=== PATIENT | female | born 1980 | race Caucasian/White ===

== ENCOUNTER 2018-01-14 14:03 | Emergency (ER) | payer MEDICAID, OTHER ==
[2018-01-14 14:16] VITALS: BP 116/86
[2018-01-14] MEDS ORDERED: BUFFERED LIDOCAINE 10 ML SYRINGE ONE (14:39)
--- NOTE | 2018-01-14 14:40 | ED Physician Documentation ---
PD HPI UPPER EXT INJURY - Stated complaint Stated Complaint: R HAND LAC - Chief complaint Chief Complaint: Laceration - History obtained from History obtained from: Patient - History of Present Illness Location: Right, Hand Type of injury: Laceration Where injury occurred: Home Timing - onset: Last night (1929) - Additonal information Additional information: Cut on broken glass at home last night, Tetanus is up-to-date. Review of Systems Constitutional: reports: Reviewed and negative Ears: reports: Reviewed and negative Nose: reports: Reviewed and negative PD PAST MEDICAL HISTORY - Past Surgical History Past Surgical History: No - Present Medications Home Medications: Ambulatory Orders Medication Instructions Recorded Confirmed No Known Home Medications [No 01/14/18 01/14/18 Known Home Medications] - Allergies Allergies/Adverse Reactions: Allergies Allergy/AdvReac Type Severity Reaction Status Date / Time codeine Allergy Unknown Verified 09/19/15 16:36 sulfamethoxazole Allergy Unknown Verified 09/19/15 16:36 [From ] trimethoprim [From ] Allergy Unknown Verified 09/19/15 16:36 - Social History Does the pt smoke?: No Smoking Status: Never smoker Does the pt drink ETOH?: No Does the pt have substance abuse?: No - Immunizations Immunizations are current?: Yes - POLST Patient has POLST: No PD ED PE NORMAL - Vitals Vital signs reviewed: Yes - General General: Alert and oriented X 3, No acute distress - Extremities Extremities: Other (Is a curved flap laceration on the radial side of the dorsum of the hand just proximal to the second MCP, she has normal neurovascular status in that digit and the wound is not deep enough to affect deeper structures anyway.) - Neuro Neuro: Alert and oriented X 3, Normal speech Results - Vitals Vitals: Vital Signs - 24 hr 01/14/18 14:11 Temperature 36.7 C Heart Rate 96 Respiratory 16 Rate Blood Pressure 116/86 H O2 Saturation 99 Oxygen O2 Source Room air Procedures - Laceration (location) R hand Length in cm: 3 Wound type: Curved, Into subcut fat Neurovascular status: Sensory intact, Motor intact, Vascular intact Anesthesia: Lidocaine 1%, With bicarb Wound Preparation: Betadine, Irrigated copiously NS Skin layer closure: Nylon, Interrupted, Size #-0 - enter number (5-0) Other: Patient tolerated well, No complications, Neurovascular intact, Tetanus UTD PD MEDICAL DECISION MAKING - Sepsis Event Vital Signs: Vital Signs - 24 hr 01/14/18 14:11 Temperature 36.7 C Heart Rate 96 Respiratory 16 Rate Blood Pressure 116/86 H O2 Saturation 99 Oxygen O2 Source Room air Departure - Departure Disposition: 01 Home, Self Care Clinical Impression: Laceration Condition: Good Record reviewed to determine appropriate education?: Yes Instructions: ED Laceration Hand Comments: Come back for any signs of infection which would include: Redness, swelling, drainage, increased pain, or fevers. Follow-up with your physician in About 14 days for suture removal. Your blood pressure was elevated today on check into the emergency department. This does not mean that you have hypertension, it is a common phenomenon to come to the emergency department and have elevated blood pressure. I recommend that you see your primary care physician within the week to have it rechecked when you are feeling better.
== END 2018-01-14 14:50 | disposition home or self-care (01) ==
LOC: ED 14:03
DX: S61.411A Laceration without foreign body of right hand, initial encounter (principal); W25.XXXA Contact with sharp glass, initial encounter; Y93.G1 Activity, food preparation and clean up; Y92.000 Kitchen of unspecified non-institutional (private) residence as the place of occurrence of the external cause
CPT/HCPCS: 12002; 99282; 99283

== ENCOUNTER 2018-07-05 03:23 | Emergency (ER) | payer MEDICAID ==
[2018-07-05] MEDS ORDERED: PROPARACAINE 0.5% OPHTH DROPS 15 ML LEFTEYE STA (03:40)
[2018-07-05] MEDS ORDERED: NEOMYCIN/POLYMYX/DEXAMETH OPHTH DROPS 5 ML LEFTEYE STA (04:08)
[2018-07-05] MEDS ORDERED: LIDOCAINE 1% 2 ML VIAL SUBQ ONE (04:08)
[2018-07-05] MEDS ORDERED: cefTRIAXone 1 GM VIAL IM STA (04:08)
--- NOTE | 2018-07-05 04:11 | ED Physician Documentation ---
PD HPI URI - Stated complaint Stated Complaint: L EYE PX - Chief complaint Chief Complaint: Heent - History obtained from History obtained from: Patient - History of Present Illness Timing - onset: How many weeks ago (1) Timing duration: Weeks (1) Timing details: Gradual onset, Still present Associated symptoms: Nasal congestion, Rhinorrhea, Sinus pain, Sore throat, Dry cough, Other (eye crusting and swelling) Contributing factors: Sick contact Improves by: Rest, Medication Similar symptoms before: Has not had sx before Recently seen: Not recently seen - Additional information Additional information: 38-year-old female has had a cold for the past week and she has now developed swelling and drainage from the left eye. She has a feeling of aching to the eye. She denies any foreign body sensation she does state that she can see that there is a lot of redness to the medial aspect of the eye and drainage out of the lateral aspect of some matting discharge. She has had a cough and congestion and a sore throat especially on the left. She has not had any change in vision. Review of Systems Constitutional: reports: Myalgias, Fatigue. denies: Fever Eyes: reports: Discharge, Irritation. 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 : None HEENT: None Psych: Depression Musculoskeletal: None Derm: Eczema Other Past Medical History: IBS - Past Surgical History Past Surgical History: No - Present Medications Home Medications: Ambulatory Orders Medication Instructions Recorded Confirmed Amox/Clav 875/125 [Augmentin] 1 each PO Q12H #20 tablet 07/05/18 - Allergies Allergies/Adverse Reactions: Allergies Allergy/AdvReac Type Severity Reaction Status Date / Time codeine Allergy Unknown Verified 07/05/18 03:34 sulfamethoxazole Allergy Unknown Verified 07/05/18 03:34 [From ] trimethoprim [From ] Allergy Unknown Verified 07/05/18 03:34 - Social History Does the pt smoke?: No Smoking Status: Never smoker Does the pt drink ETOH?: Yes Does the pt have substance abuse?: No - Immunizations Immunizations are current?: Yes - POLST Patient has POLST: No PD ED PE NORMAL - Vitals Vital signs reviewed: Yes (hypertensive ) - General General: Alert and oriented X 3, No acute distress, Well developed/nourished - HEENT HEENT: Atraumatic, PERRL, EOMI, Other (The right TM is clear the left is mildly erythematous. The left eye has matting to the lateral aspect with yellow drainag. There is injection to the sclera on the left medially and the upper and lower lids are swollen and erythematous. There is no fluroscien uptake. She looks like she has tuan-orbital cellulitis with drainage from the lateral aspect of the eye. The pharynx is with 1+ cryptic tonsils worse on the left with mild erythema and no exudate. ) - Neck Neck: Supple, no meningeal sign, No bony TTP - Cardiac Cardiac: RRR, No murmur - Respiratory Respiratory: No respiratory distress, Clear bilaterally - Abdomen Abdomen: Soft, Non tender - Back Back: No CVA TTP, No spinal TTP - Derm Derm: Normal color, Warm and dry, No rash - Extremities Extremities: No deformity, No edema - Neuro Neuro: Alert and oriented X 3, light adjuster 2-12 intact, No motor deficit, No sensory deficit, Normal speech Eye Opening: Spontaneous Motor: Obeys Commands Verbal: Oriented GCS Score: 15 - Psych Psych: Normal mood, Normal affect Results - Vitals Vitals: Vital Signs - 24 hr 07/05/18 03:29 Temperature 36.7 C Heart Rate 89 Respiratory 16 Rate Blood Pressure 133/89 H O2 Saturation 97 Oxygen O2 Source Room air PD MEDICAL DECISION MAKING - ED course Complexity details: considered differential, d/w patient ED course: 38 y/o female with URI has developed drainage from the left eye and appears to have a conjunctival injection and periorbital cellulitis. She is given IM rocep hin and we will put her on some augmetin. She is administered maxitrol eye drops as well. Departure - Departure Disposition: 01 Home, Self Care Clinical Impression: Periorbital cellulitis of left eye Conjunctivitis Qualifiers: Conjunctivitis type: acute Acute conjunctivitis type: bacterial Laterality: left Qualified Code(s): H10.32 - Unspecified acute conjunctivitis, left eye Condition: Stable Instructions: ED Conjunctivitis Bacterial, ED Cellulitis Tuan Orbital Follow-Up: [facility] [Provider Group] Prescriptions: Amox/Clav 875/125 [Augmentin] 1 each PO Q12H #20 tablet
[2018-07-05 04:44] VITALS: BP 117/79
== END 2018-07-05 04:45 | disposition home or self-care (01) ==
LOC: ED 03:23
DX: H10.32 Unspecified acute conjunctivitis, left eye (principal); J06.9 Acute upper respiratory infection, unspecified
CPT/HCPCS: 96372; 99283

== ENCOUNTER 2018-10-24 22:39 | Emergency (ER) | payer MEDICAID ==
--- NOTE | 2018-10-24 23:16 | ED Physician Documentation ---
PD HPI BACK PAIN - Stated complaint Stated Complaint: L BACK PX - Chief complaint Chief Complaint: Back Pain - History obtained from History obtained from: Patient - History of Present Illness Timing - onset: Yesterday Timing - details: Gradual onset, Waxing and waning Pain level now: 5 Location: Mid, Lower, Left Quality: Pain Associated symptoms: No: Fever, Weakness, Numbness, Incontinent of urine, Unable to urinate, Hematuria, Incontinent of stool Improves with: Rest Worsened by: Movement, Twisting Similar symptoms before: Has not had sx before Recently seen: Not recently seen - Additional information Additional information: c/o gradual onset, gradually worsening left lower back pain that radiates around left flank to LLQ. denies injury and denies h/o similar symptoms. pain is worse with movement Review of Systems Constitutional: denies: Fever, Chills, Sweats Cardiac: reports: Reviewed and negative Respiratory: reports: Reviewed and negative GI: denies: Abdominal Pain (back pain that radiates around flank to LLQ, but not abdominal pain per se), Nausea, Vomiting : denies: Dysuria, Frequency, Hematuria, Now EGA Skin: denies: Rash Musculoskeletal: reports: Back pain. 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 : None HEENT: None Psych: Depression Musculoskeletal: None Derm: Eczema - Past Surgical History Past Surgical History: No - Present Medications Home Medications: Ambulatory Orders Medication Instructions Recorded Confirmed Amox/Clav 875/125 [Augmentin] 1 each PO Q12H #20 tablet 07/05/18 Cyclobenzaprine [Flexeril] 10 mg PO TID PRN #14 tablet 10/25/18 Hydrocodone/Acetaminophen 1 - 2 each PO Q6H PRN #14 tablet 10/25/18 [Hydrocodon-Acetaminophen 5-325] - Allergies Allergies/Adverse Reactions: Allergies Allergy/AdvReac Type Severity Reaction Status Date / Time codeine Allergy Unknown Verified 07/05/18 03:34 sulfamethoxazole Allergy Unknown Verified 07/05/18 03:34 [From ] trimethoprim [From ] Allergy Unknown Verified 07/05/18 03:34 - Social History Does the pt smoke?: No Smoking Status: Never smoker Does the pt drink ETOH?: Yes Does the pt have substance abuse?: No - Immunizations Immunizations are current?: Yes - POLST Patient has POLST: No PD ED PE NORMAL - Vitals Vital signs reviewed: Yes - General General: Alert and oriented X 3, No acute distress, Well developed/nourished - Cardiac Cardiac: RRR, No murmur - Respiratory Respiratory: No respiratory distress, Clear bilaterally - Abdomen Abdomen: Normal bowel sounds, Soft, Non tender, Non distended - Back Back: No CVA TTP, No spinal TTP - Derm Derm: No rash - Extremities Extremities: No edema Results - Vitals Vitals: Vital Signs - 24 hr 10/24/18 10/25/18 22:42 00:41 Temperature 36.6 C 36.7 C Heart Rate 98 90 Respiratory 16 18 Rate Blood Pressure 142/73 H 127/75 O2 Saturation 100 100 Oxygen O2 Source Room air - Labs Labs: Laboratory Tests 10/24/18 23:27 Urine Color YELLOW Urine Clarity CLEAR Urine pH 6.0 Ur Specific [place] >=1.030 H Urine Protein NEGATIVE Urine Glucose (UA) NEGATIVE Urine Ketones NEGATIVE Urine Occult Blood LARGE H Urine Nitrite NEGATIVE Urine Bilirubin NEGATIVE Urine Urobilinogen 0.2 (NORMAL) Ur Leukocyte Esterase NEGATIVE Urine RBC 0-5 Urine WBC 0-3 Ur Squamous Epith Cells FEW Squamous Urine Bacteria Rare Ur Microscopic Review INDICATED Urine Culture Comments NOT INDICATED Urine HCG, Qual NEGATIVE PD MEDICAL DECISION MAKING - ED course Complexity details: reviewed results, re-evaluated patient, considered differential, d/w patient ED course: UA has RBC but patient is currently menstruating. HPI and exam is most suggestive of uncomplicated musculoskeletal back pain. Patient reported improvement with toradol and is comfortable with d/c home, return if worse, and f/u with PMD Departure - Departure Disposition: Home, Self Care Clinical Impression: Back pain Condition: Good Instructions: ED Neck Back Pain General Follow-Up: Grace Hannon PA-C [Primary Care Provider] - Within 3 Days Prescriptions: Cyclobenzaprine [Flexeril] 10 mg PO TID PRN #14 tablet PRN Reason: Spasms Hydrocodone/Acetaminophen [Hydrocodon-Acetaminophen 5-325] 1 - 2 each PO Q6H PRN #14 tablet PRN Reason: pain Discharge Date/Time: 10/25/18 00:42
[2018-10-24] MEDS ORDERED: KETOROLAC 60 MG/2 ML VIAL IM STA (23:29)
[2018-10-24 23:33] LABS: BILIRUBIN,URINE NEGATIVE (NEGATIVE); GLUCOSE, URINE (UA) NEGATIVE (NEGATIVE); KETONES,URINE (UA) NEGATIVE (NEGATIVE); LEUKOCYTE ESTERASE, URINE NEGATIVE (NEGATIVE); NITRITE,URINE NEGATIVE (NEGATIVE); OCCULT BLOOD,URINE LARGE (NEGATIVE); PROTEIN,URINE NEGATIVE (NEGATIVE); UROBILINOGEN,URINE 0.2 (NORMAL) E.U./dL (NORMAL)
[2018-10-24 23:34] LABS: CLARITY,URINE CLEAR (CLEAR)
[2018-10-24 23:35] LABS: HCG UR QUAL NEGATIVE
[2018-10-24 23:39] LABS: BACTERIA,URINE Rare /HPF (None Seen); RBC,URINE 0-5 /HPF (0-5); SQUAMOUS EPITHELIAL CELL,UR FEW Squamous (<= Few)
[2018-10-25 00:42] VITALS: BP 127/75
== END 2018-10-25 00:42 | disposition home or self-care (01) ==
LOC: ED 22:39
DX: M54.5 Low back pain (principal)
CPT/HCPCS: 81001; 81003; 81025; 87086; 96372; 99283

== ENCOUNTER 2018-12-15 11:41 | Emergency (ER) | payer MEDICAID ==
[2018-12-15 11:50] VITALS: BP 118/59
--- NOTE | 2018-12-15 12:29 | ED Physician Documentation ---
PD HPI LOWER EXT INJURY - Stated complaint Stated Complaint: KNEE PX - Chief complaint Chief Complaint: Ext Problem - History obtained from History obtained from: Patient - History of Present Illness PD HPI LOW EXT INJURY LOCATION: Right, Knee Type of injury: Other (No known injury, however the patient thinks she may have hit her knee getting into the car the other day and she is been climbing up and down a ladder building a chicken coop.) Timing - onset: Today Timing - details: Abrupt onset Improved by: Meds Worsened by: Moving Associated symptoms: Swelling Similar symptoms before: Has not had sx before - Additional information Additional information: This is a 38-year-old who started have a little bit of pain in her knee last night on the right side this morning she woke up and it was very stiff and she had a hard time putting it down walking on it. She took ibuprofen 400 mg about 2 hours ago and it seems to be doing much better although still a little bit painful. She can feel creaking over the knee when she moves it. She is very active at home she has a 2 and a 3-year-old she is been building a chicken coop climbing up and down a ladder but does not remember any specific injury to the knee. She thinks she might have twisted it in the past. There is no numbness or tingling down into her foot but a little bit of numbness she felt earlier today along the medial aspect of the knee joint. That has now resolved. She has not had a fever. No nausea. No history of diabetes. 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 - Present Medications Home Medications: Ambulatory Orders Medication Instructions Recorded Confirmed No Known Home Medications 12/15/18 12/15/18 - Allergies Allergies/Adverse Reactions: Allergies Allergy/AdvReac Type Severity Reaction Status Date / Time codeine Allergy Unknown Verified 12/15/18 11:50 sulfamethoxazole Allergy Unknown Verified 12/15/18 11:50 [From ] trimethoprim [From ] Allergy Unknown Verified 12/15/18 11:50 - Social History Does the pt smoke?: No Smoking Status: Current some day smoker Does the pt drink ETOH?: Yes Does the pt have substance abuse?: No - Immunizations Immunizations are current?: Yes - POLST Patient has POLST: No PD ED PE NORMAL - Vitals Vital signs reviewed: Yes - General General: Alert and oriented X 3, No acute distress, Well developed/nourished - HEENT HEENT: Atraumatic - Cardiac Cardiac: RRR - Respiratory Respiratory: No respiratory distress - Derm Derm: Normal color, Other (Erythema over the right patella. Very sharply demarcated. No warmth.) - Extremities Extremities: Other (Free range of motion about the right knee. I could feel crepitus with movement of the knee. It is mildly tender.No pedal edema.) - Neuro Neuro: Alert and oriented X 3, No motor deficit, No sensory deficit - Psych Psych: Normal mood, Normal affect Results - Vitals Vitals: Vital Signs - 24 hr 12/15/18 11:48 Temperature 36.6 C Heart Rate 77 Respiratory 16 Rate Blood Pressure 118/59 L O2 Saturation 100 Oxygen O2 Source Room air PD MEDICAL DECISION MAKING - ED course Complexity details: d/w patient ED course: Patient has classic presentation of prepatellar bursitis. No indication of infection. She will continue anti-inflammatories, ice of comfort. Return if the swelling is worsening, she develops a fever or she is vomiting and cannot keep anything down. Departure - Departure Disposition: 01 Home, Self Care Clinical Impression: Bursitis Qualifiers: Bursitis location: knee Knee bursitis location: prepatellar bursitis Laterality: right Qualified Code(s): M70.41 - Prepatellar bursitis, right knee Condition: Good Instructions: ED Bursitis Follow-Up: Grace Hannon PA-C [Primary Care Provider] - Comments: Continue to use ibuprofen [id number] for pain. I would take up to 4 tablets every 8 hours with food for the next 2 to 3 days and then as needed. Ice may help with some discomfort. Avoid leaning on the knee, bending, stooping, climbing a lot of steps or ladders. Follow-up with your primary care provider if this is not resolving and return if there is worsening with spreading redness, increasing severe pain, fever or other problems arise.
== END 2018-12-15 12:37 | disposition home or self-care (01) ==
LOC: ED 11:41
DX: M70.41 Prepatellar bursitis, right knee (principal); F17.200 Nicotine dependence, unspecified, uncomplicated; Y93.H3 Activity, building and construction; Y92.89 Other specified places as the place of occurrence of the external cause
CPT/HCPCS: 99282

== ENCOUNTER 2019-06-04 23:04 | Emergency (ER) | payer MEDICAID ==
[2019-06-04 23:12] VITALS: BP 125/78
--- NOTE | 2019-06-04 23:17 | ED Physician Documentation ---
PD HPI URI - Stated complaint Stated Complaint: SORE THROAT/RUNNY NOSE - Chief complaint Chief Complaint: Heent - History obtained from History obtained from: Patient - History of Present Illness Timing - onset: How many weeks ago (1) Timing duration: Weeks (1) Timing details: Gradual onset Severity Comments: moderate nasal congestion, sore throat Associated symptoms: Nasal congestion, Rhinorrhea, Sore throat. No: Fever, Chills, Sweats, Ear pain, Sinus pain, Swollen nodes, Dry cough, Productive cou gh, Hemoptysis, Chest pain, Dyspnea, NVD, Bilateral edema, Unilateral edema Contributing factors: Other (unknown) Improves by: Nothing Worsened by: Other (nothing) Similar symptoms before: Diagnosis (hx of flu recently, mono in the past, sinusitis) Recently seen: Not recently seen - Treatment prior to arrival Treatment prior to arrival: anna anthony cold medicine Review of Systems Ten Systems: 10 systems reviewed and negative Constitutional: denies: Fever Eyes: reports: Reviewed and negative Ears: denies: Ear pain, Drainage/discharge Nose: reports: Rhinorrhea / runny nose, Congestion Throat: reports: Sore throat Cardiac: reports: Reviewed and negative Respiratory: reports: Reviewed and negative GI: reports: Reviewed and negative : reports: Reviewed and negative Skin: reports: Reviewed and negative Neurologic: reports: Headache Endocrine: reports: Reviewed and negative Immunocompromised: reports: Reviewed and negative PD PAST MEDICAL HISTORY - Past Medical History Past Medical History: Yes Cardiovascular: None Respiratory: Asthma Neuro: None Endocrine/Autoimmune: None GI: 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 06/04/19 - Allergies Allergies/Adverse Reactions: Allergies Allergy/AdvReac Type Severity Reaction Status Date / Time codeine Allergy Unknown Verified 06/04/19 23:07 sulfamethoxazole Allergy Unknown Verified 06/04/19 23:07 [From ] trimethoprim [From ] Allergy Unknown Verified 06/04/19 23:07 - Social History Does the pt smoke?: No Smoking Status: Current some day smoker Does the pt drink ETOH?: Yes Does the pt have substance abuse?: No - Immunizations Immunizations are current?: Yes - POLST Patient has POLST: No PD ED PE NORMAL - Vitals Vital signs reviewed: Yes - General General: Alert and oriented X 3, No acute distress, Well developed/nourished - HEENT HEENT: Atraumatic, Pharynx benign - Neck Neck: Supple, no meningeal sign, No JVD - Cardiac Cardiac: RRR, No murmur, No gallop, No rub - Respiratory Respiratory: No respiratory distress, Clear bilaterally - Abdomen Abdomen: Soft, Non tender, Non distended - Female Female : Deferred - Rectal Rectal: Deferred - Derm Derm: Normal color, Warm and dry, No rash - Extremities Extremities: No deformity - Neuro Neuro: Alert and oriented X 3 Eye Opening: Spontaneous Motor: Obeys Commands Verbal: Oriented GCS Score: 15 - Psych Psych: Normal mood, Normal affect PD ED PE EXPANDED - HEENT HEENT: Other (L nostril redness, sore inner nostril with some yello crusting, mild tenderness, no fluctuance ) Results - Vitals Vitals: Vital Signs - 24 hr 06/04/19 23:07 Temperature 37.3 C Heart Rate 100 Respiratory 16 Rate Blood Pressure 125/78 O2 Saturation 98 Oxygen O2 Source Room air - Labs Labs: Laboratory Tests 06/04/19 06/04/19 23:20 23:20 Influenza A (Rapid) Negative Influenza B (Rapid) Negative Group A Strep Rapid POSITIVE H PD MEDICAL DECISION MAKING - ED course Complexity details: reviewed results, considered differential, d/w patient ED course: 38 y/o F with URI symptoms, sore throat, sinus congestion No fever. Also has a L nostril sore and redness concerning for impetigo. Rapid strep positive here today. Will treat with augmentin and mupirocin for impetigo. Pt stable for discharge with continued supportive care as well, nsaids, afrin nasal spray and outpt f/u Departure - Departure Disposition: 01 Home, Self Care Clinical Impression: Strep pharyngitis Sinusitis Qualifiers: Sinusitis location: unspecified location Chronicity: acute Recurrence: recurrent Qualified Code(s): J01.91 - Acute recurrent sinusitis, unspecified Condition: Stable Record reviewed to determine appropriate education?: Yes Instructions: ED Strep Pharyngitis Conf Follow-Up: Grace Hannon PA-C [Primary Care Provider] - As Needed Prescriptions: Amox/Clav 875/125 [Augmentin] 1 each PO Q12H #20 tablet Mupirocin 1 applic TP TID #22 oint...g. Comments: Your swab today was positive for strep throat. You should take the antibiotic - augmentin as prescribed. Continue to take ibuprofen or tylenol for pain. Use afrin nasal spray twice a day for 3 days for your nasal congestion. For your left nose swelling and redness I suspect this is impetigo. Use the mupirocin antibiotic ointment three times a day on the area. Follow up with your regular doctor to recheck your symptoms. Discharge Date/Time: 06/04/19 23:48
[2019-06-04] MEDS ORDERED: AMOX/CLAV 875 MG/125 MG TABLET PO STA (23:37)
[2019-06-04] MEDS ORDERED: OXYMETAZOLINE HCL 100 SPRAYS BOTTLE NAS STA (23:37)
[2019-06-04] MEDS ORDERED: BACITRACIN ZINC OINT 1 PACKET TOP STA (23:37)
[2019-06-04] MEDS ORDERED: IBUPROFEN 600 MG TABLET PO STA (23:37)
== END 2019-06-04 23:48 | disposition home or self-care (01) ==
LOC: ED 23:04
DX: J02.0 Streptococcal pharyngitis (principal); J01.91 Acute recurrent sinusitis, unspecified; L01.00 Impetigo, unspecified; F17.200 Nicotine dependence, unspecified, uncomplicated
CPT/HCPCS: 87275; 87276; 87430; 99283; 99284; A9270

== ENCOUNTER 2021-06-18 18:33 | Emergency (ER) | payer MEDICAID ==
[2021-06-18 18:39] VITALS: BP 128/72
--- NOTE | 2021-06-18 19:05 | ED Physician Documentation ---
History of Present Illness - Stated complaint Stated Complaint: FEMALE - Chief complaint Chief Complaint: General - Additonal information Additional information: 40-year-old female presents emergency department for concern that her IUD may not be in proper place. She has had it in place since she had a in 2017. She has never been able to feel the strings. Over the last 2 days she feels pain and pressure in her pelvic region especially when she has a bowel movement. She states that the last few times she has had sex that has been painful. Denies vaginal bleeding or discharge. some mild dysuria, but no frequency or urgency Review of Systems Constitutional: denies: Fever, Chills Eyes: reports: Reviewed and negative Ears: reports: Reviewed and negative Cardiac: reports: Reviewed and negative Respiratory: reports: Reviewed and negative GI: reports: Reviewed and negative : reports: Dysuria, Other. 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 06/04/19 Cefpodoxime Proxetil [Vantin] 100 mg PO Q12H #14 tablet 06/18/21 - Allergies Allergies/Adverse Reactions: Allergies Allergy/AdvReac Type Severity Reaction Status Date / Time codeine Allergy Unknown Verified 06/18/21 18:39 sulfamethoxazole Allergy Unknown Verified 06/18/21 18:39 [From ] trimethoprim [From ] Allergy Unknown Verified 06/18/21 18:39 - Social History Does the pt smoke?: No Smoking Status: Current some day smoker Does the pt drink ETOH?: Yes Does the pt have substance abuse?: No - Immunizations Immunizations are current?: Yes - POLST Patient has POLST: No PD ED PE EXPANDED - General General: Alert, No acute distress, Well developed/nourished - Cardiac Cardiac: Regular Rate, Radial strong equal, Pedal strong equal, Cap refill < 2 sec - Respiratory Respiratory: Clear to ausultation zina. No: Distress, Labored - Female Female : Normal external, Other (Chaperoned pelvic exam reveals no IUD strings present. No CMT or adnexal tenderness.). No: CMT, Adnexal Mass, Adnexal Tenderness Results - Vitals Vitals: Vital Signs - 24 hr 06/18/21 18:36 Temperature 36.1 C L Heart Rate 95 Respiratory 16 Rate Blood Pressure 128/72 O2 Saturation 100 Oxygen O2 Source Room air - Labs Labs: Microbiology 06/18/21 19:16 Wet Prep - Final Genital - Vaginal Laboratory Tests 06/18/21 19:06 Urine Color YELLOW Urine Clarity CLEAR Urine pH 6.5 Ur Specific [place] >=1.030 H Urine Protein NEGATIVE Urine Glucose (UA) NEGATIVE Urine Ketones NEGATIVE Urine Occult Blood NEGATIVE Urine Nitrite POSITIVE H Urine Bilirubin NEGATIVE Urine Urobilinogen 1 (NORMAL) Ur Leukocyte Esterase NEGATIVE Urine RBC 0-5 Urine WBC 0-3 Ur Squamous Epith Cells RARE Squamous Urine Bacteria Few Urine Mucus Moderate Strands Ur Microscopic Review INDICATED Urine Culture Comments INDICATED Urine HCG, Qual NEGATIVE - Rads (name of study) pelvic US Radiology: Final report received (IUD is in place. No other adventitious findings) PD MEDICAL DECISION MAKING - ED course Complexity details: reviewed results, re-evaluated patient, considered differential, d/w patient ED course: 40-year-old female presents emergency department for evaluation of mild dysuria as well as pain in her pelvic region when she defecates. She has an IUD in place but has never been able to feel the strings. On pelvic exam no strings were seen exiting the uterus. An ultrasound however did confirm that the IUD is appropriately in place. Urine suggests early infection nitrite positive with dysuria. Prescription for Cefpodoxime has been sent to the [facility] in [place]. At this time I suspected that a minor cystitis is the major cause of her pelvic pain especially with defecation. Patient was advised to have close follow-up with her OB for further discussion and management of her IUD. Given that it has been in place for nearly 5 years and she cannot feel the strings it likely needs to be replaced. Emergent worrisome return precautions were discussed for concerns of infection or failure symptoms to resolve. Departure - Departure Disposition: 01 Home, Self Care Clinical Impression: Pelvic pain, IUD check up Acute cystitis Qualifiers: Hematuria presence: without hematuria Qualified Code(s): N30.00 - Acute cystitis without hematuria Condition: Stable Record reviewed to determine appropriate education?: Yes Prescriptions: Cefpodoxime Proxetil [Vantin] 100 mg PO Q12H #14 tablet Comments: You are seen in the ER today because you have had pain when you defecate and are concerned about the placement of your IUD. Your urine suggests an early urinary tract infection. Though we could not see the IUD strings on her pelvic exam and I ultrasound does confirm that the IUD is in place. It is important that you schedule follow-up with an op OB provider. Your IUD may need to be replaced given that it is now nearly 5 years old and the strings are not accessible. Please fill the prescription for the Cefpodoxime and begin taking twice daily. This prescription has been sent to the [facility] in [place]. I suspected that the urinary tract infection is causing more of the pelvic pain than the IUD.
[2021-06-18 19:14] LABS: BILIRUBIN,URINE NEGATIVE (NEGATIVE); GLUCOSE, URINE (UA) NEGATIVE (NEGATIVE); KETONES,URINE (UA) NEGATIVE (NEGATIVE); LEUKOCYTE ESTERASE, URINE NEGATIVE (NEGATIVE); NITRITE,URINE POSITIVE (NEGATIVE); OCCULT BLOOD,URINE NEGATIVE (NEGATIVE); PH,URINE 6.5 PH (5.0-7.5); PROTEIN,URINE NEGATIVE (NEGATIVE); UROBILINOGEN,URINE 1 (NORMAL) E.U./dL (NORMAL)
[2021-06-18 19:18] LABS: CLARITY,URINE CLEAR (CLEAR); HCG UR QUAL NEGATIVE
[2021-06-18 19:23] LABS: BACTERIA,URINE Few /HPF (None Seen); MUCUS,URINE Moderate Strands; RBC,URINE 0-5 /HPF (0-5); SQUAMOUS EPITHELIAL CELL,UR RARE Squamous (<= Few); WBC,URINE 0-3 /HPF (0-5)
--- NOTE | 2021-06-18 22:08 | Ultrasound Report ---
PROCEDURE: Pelvic w/Transvag+Doppler Comp INDICATIONS: pelvic pain, R TECHNIQUE: Real-time scanning was performed of the pelvic organs, with image documentation. Additional endovagi nal scanning was necessary due to incomplete visualization of the adnexal and endometrial structures by transabdominal scanning. COMPARISON: None. FINDINGS: No pathologic free abdominal or pelvic fluid. Uterus: Uterus is normal in size at 6.6 x 3.4 x 4.7 cm. Uterine volume is 56.3 mL. The endometrium m easures 2.9 mm in combined thickness. An IUD is in satisfactory position. Ovaries: Right ovary measures 2.2 x 1.7 x 2.4 cm with a volume of 4.7 mL. Left ovary measures 2.9 x 2.3 x 2.7 cm with a volume of 9.2 mL. Intraovarian flow bilaterally by duplex. IMPRESSION: IUD in satisfactory position. Otherwise unremarkable pelvic ultrasound with no evidence of ovarian to rsion. Reviewed by: Lj Ramos MD on 06/18/2021 10:07 PM PST Approved by: Lj Ramos MD on 06/18/2021 10:07 PM PST Station ID: [id number]
[2021-06-19 00:22] LABS: CHLAMYDIA TRACHOMATIS DNA NEGATIVE (NEGATIVE); NEISSERIA GONORRHOEAE DNA NEGATIVE (NEGATIVE); TRICHOMONAS VAGINALIS DNA NEGATIVE (NEGATIVE)
== END 2021-06-18 21:20 | disposition home or self-care (01) ==
LOC: ED 18:33
DX: R10.2 Pelvic and perineal pain (principal); Z30.431 Encounter for routine checking of intrauterine contraceptive device; F17.200 Nicotine dependence, unspecified, uncomplicated
CPT/HCPCS: 81001; 81003; 81025; 87086; 87181; 87210; 87491; 87591; 87661; 93975; 99283; 99284

== ENCOUNTER 2021-06-20 03:54 | Outpatient (CLI) | payer MEDICAID | END 2021-06-20 03:55 | disposition critical access hospital (66) | LOC: EMS 03:54 | DX: R41.82 Altered mental status, unspecified (principal) | CPT/HCPCS: A0425; A0429 ==

== ENCOUNTER 2021-06-20 04:15 | Emergency (ER) | payer MEDICAID ==
[2021-06-20] MEDS ORDERED: MIDAZOLAM 10 MG/5 ML UDC PO STA (04:23)
--- NOTE | 2021-06-20 04:37 | ED Physician Documentation ---
History of Present Illness - Stated complaint Stated Complaint: INGESTION OF MUSHROOMS - Chief complaint Chief Complaint: General - History obtained from History obtained from: Patient, EMS - Additonal information Additional information: 41-year-old woman presents with ingestion of psychogenic mushrooms. Mother called EMS because she was "having a bad trip". Patient stating that she is having trouble grasping reality right now and wants the vision changes to stop. no other complaints. vitals in the field normal other than mild tachycardia. 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 06/04/19 Cefpodoxime Proxetil [Vantin] 100 mg PO Q12H #14 tablet 06/18/21 - Allergies Allergies/Adverse Reactions: Allergies Allergy/AdvReac Type Severity Reaction Status Date / Time codeine Allergy Unknown Verified 06/18/21 18:39 sulfamethoxazole Allergy Unknown Verified 06/18/21 18:39 [From ] trimethoprim [From ] Allergy Unknown Verified 06/18/21 18:39 - Social History Does the pt smoke?: No Smoking Status: Current some day smoker Does the pt drink ETOH?: Yes Does the pt have substance abuse?: No - Immunizations Immunizations are current?: Yes - POLST Patient has POLST: No PD ED PE NORMAL - Vitals Vital signs reviewed: Yes - General General: No acute distress, Well developed/nourished, Other (Alert, disoriented, staring straight ahead) - HEENT HEENT: Atraumatic, PERRL, EOMI, Moist mucous membranes, Other (pupils 4mm bilaterally) - Neck Neck: Supple, no meningeal sign - Cardiac Cardiac: RRR - Respiratory Respiratory: No respiratory distress, Clear bilaterally - Abdomen Abdomen: Non tender, Non distended - Derm Derm: Normal color, Warm and dry - Extremities Extremities: No deformity - Neuro Neuro: No motor deficit, No sensory deficit - Psych Psych: Other (clinically intoxicated. endorses visual disturbance/hallucination) Results - Vitals Vitals: Vital Signs - 24 hr 06/20/21 04:19 Temperature 36.6 C Heart Rate 106 H Respiratory 26 H Rate Blood Pressure 146/87 H O2 Saturation 99 Oxygen O2 Source Room air PD MEDICAL DECISION MAKING - ED course ED course: 41-year-old woman presents status post injection of Magic mushrooms with acute intoxication. Vital signs are normal with the exception of mild hypertension and tachycardia. Patient appears mildly anxious but in no acute distress. We will keep on the teletypesetter monitor and continue to monitor. Patient AOX3 after an hour of monitoring and 2mg oral versed, apologetic, asking to go home. She has a ride coming to get her. No complaints at this time. return precautions given. Departure - Departure Disposition: 01 Home, Self Care Clinical Impression: Intoxication by drug Condition: Good Comments: You were seen in the emergency department for evaluation after ingesting mushrooms. We gave you 2 mg of liquid Versed, an antianxiety medication that can help counteract the negative effects of psilocybin. Please return to the emergency department if you have other concerns. Follow up with your primary doctor. Glad you're feeling better!
[2021-06-20 05:19] VITALS: BP 142/82
== END 2021-06-20 05:41 | disposition home or self-care (01) ==
LOC: EDUNIT# → ED 04:15
DX: F16.929 Hallucinogen use, unspecified with intoxication, unspecified (principal); R44.1 Visual hallucinations; R41.0 Disorientation, unspecified; R00.0 Tachycardia, unspecified; I10 Essential (primary) hypertension
CPT/HCPCS: 99281; 99284; A9270

== ENCOUNTER 2021-12-04 12:26 | Emergency (ER) | payer MEDICAID ==
[2021-12-04 12:39] VITALS: BP 148/80
--- NOTE | 2021-12-04 12:48 | ED Physician Documentation ---
PD HPI HEENT - Stated complaint Stated Complaint: MOUTH AND THROAT SWOLLEN - Chief complaint Chief Complaint: Heent - History obtained from History obtained from: Patient - Additional information Additional information: 5 days of worsening tooth pain from a right mandibular molar. It is getting hard to chew and she feels the pain radiating away. She last saw her dentist 6 months ago who noted that that tooth needed to be removed, but she did not return because she has children. 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 - Present Medications Home Medications: Ambulatory Orders Medication Instructions Recorded Confirmed Penicillin V Potassium 500 mg PO Q6HR #40 tablet 12/04/21 - Allergies Allergies/Adverse Reactions: Allergies Allergy/AdvReac Type Severity Reaction Status Date / Time codeine Allergy Unknown Verified 12/04/21 12:34 sulfamethoxazole Allergy Unknown Verified 12/04/21 12:34 [From ] trimethoprim [From ] Allergy Unknown Verified 12/04/21 12:34 - Social History Does the pt smoke?: No Smoking Status: Never smoker Does the pt drink ETOH?: Yes Does the pt have substance abuse?: No - Immunizations Immunizations are current?: Yes - POLST Patient has POLST: No PD ED PE NORMAL - Vitals Vital signs reviewed: Yes - General General: Alert and oriented X 3, No acute distress - HEENT HEENT: Other (Very carious remaining right mandibular molar with tenderness. No trismus, sublingual edema, swelling.) - Neck Neck: Supple, no meningeal sign, No bony TTP - Neuro Neuro: Alert and oriented X 3, Normal speech Results - Vitals Vitals: Vital Signs - 24 hr 12/04/21 12:33 Temperature 37.3 C Heart Rate 96 Respiratory 17 Rate Blood Pressure 148/80 H O2 Saturation 99 Oxygen O2 Source Room air PD MEDICAL DECISION MAKING - ED course ED course: She declined pain medication. Departure - Departure Disposition: 01 Home, Self Care Clinical Impression: Pain due to dental caries Condition: Good Record reviewed to determine appropriate education?: Yes Instructions: ED Tooth Pain Prescriptions: Penicillin V Potassium 500 mg PO Q6HR #40 tablet Comments: I sent your prescription electronically to [facility] in [place]. It is very important that you follow-up with a dentist. When it comes to dental problems like yours, the emergency department can only offer a short-term solution to your long-term problem. A couple of low cost options for dental care include: [facility] in [place], calls [phone] for an appointment Or [facility] in [place], call [phone] for an appointment.
--- OUTSIDE RECORDS SUMMARY | 2021-12-04 12:55 | EXTERNAL MEDICAL SUMMARY RPT | Continuity of Care Document ---
:1980 Author Organization [facility] Address [address] [place] [address] Phone Care Team Providers Name Role Phone Foist Unavailable Unavailable Allergies No information. Encounters No information. Medications date description facility 20210908 Cephalexin 500 MG Oral Capsule [facility] 20210908 Phenazopyridine hydrochloride 100 MG Or al Tablet [facility] Problems Procedures date description facility 20210908 General Physician [facility] Results No information. Vital Signs date measurement value source 20210908 weight_standard 149.98 lb 20210908 weight_metric 68.03 kg 20210908 temperature_standard 98 F 20210908 temperature_metric 36.67 C 20210908 respiration_rate 19 /min 20210908 height_standard 63 in 20210908 height_metric 160.02 cm 20210908 heart_rate 90 /min 20210908 BP_systolic 128 mm[Hg] 20210908 BP_diastolic 68 mm[Hg] 20210908 BMI 26.5 kg/m2
== END 2021-12-04 12:52 | disposition home or self-care (01) ==
LOC: ED 12:26
DX: K02.9 Dental caries, unspecified (principal)
CPT/HCPCS: 99282

== ENCOUNTER 2023-09-16 02:43 | Emergency (ER) | payer MEDICAID ==
[2023-09-16 03:06] VITALS: BP 139/85; O2SAT 100
--- NOTE | 2023-09-16 03:30 | ED Physician Documentation ---
PD HPI FEMALE - Stated complaint Stated Complaint: - Chief complaint Chief Complaint: Abd Pain - History obtained from History obtained from: Patient - Additional information Additional information: Patient is a 43-year-old female presenting for evaluation of feeling fluttering sensations in her abdomen for the past 2 days intermittently. Patient states that she started her period 2 days ago. She has a copper IUD that has been in place for the last 7 years. She states she is concerned for although she did take a test at home which was negative because she still had her period when she was with her son and did not find out till she was 3 months along.Denies constant pain, nausea, vomiting, diarrhea. Denies dysuria or vaginal discharge. 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 - Present Medications Home Medications: Ambulatory Orders Medication Instructions Recorded Confirmed No Known Home Medications 09/16/23 09/16/23 - Allergies Allergies/Adverse Reactions: Allergies Allergy/AdvReac Type Severity Reaction Status Date / Time codeine Allergy Unknown Verified 09/16/23 03:01 sulfamethoxazole Allergy Unknown Verified 09/16/23 03:01 [From ] trimethoprim [From ] Allergy Unknown Verified 09/16/23 03:01 - Social History Does the pt smoke?: No Smoking Status: Never smoker Does the pt drink ETOH?: Yes Does the pt have substance abuse?: No - Immunizations Immunizations are current?: Yes - POLST Patient has POLST: No PD ED PE NORMAL - General General: Alert and oriented X 3, No acute distress, Well developed/nourished - HEENT HEENT: Atraumatic - Neck Neck: Supple, no meningeal sign - Cardiac Cardiac: RRR - Respiratory Respiratory: No respiratory distress - Abdomen Abdomen: Normal bowel sounds, Soft, Non tender, Non distended - Derm Derm: Warm and dry - Neuro Neuro: Normal speech Results - Vitals Vitals: Vital Signs - 24 hr 09/16/23 02:56 Temperature 36.4 C L Heart Rate 93 Respiratory 16 Rate Blood Pressure 139/85 H O2 Saturation 100 Oxygen O2 Source Room air - Labs Labs: Laboratory Tests 09/16/23 03:41 Urine Color YELLOW Urine Clarity CLEAR Urine pH 5.5 Ur Specific [place] >=1.030 H Urine Protein NEGATIVE Urine Glucose (UA) NEGATIVE Urine Ketones NEGATIVE Urine Occult Blood LARGE H Urine Nitrite NEGATIVE Urine Bilirubin NEGATIVE Urine Urobilinogen 0.2 (NORMAL) Ur Leukocyte Esterase NEGATIVE Urine RBC 6-10 H Urine WBC 0-3 Ur Squamous Epith Cells FEW Squamous Urine Bacteria Rare Urine Mucus Few Strands Ur Microscopic Review INDICATED Urine Culture Comments NOT INDICATED Urine HCG, Qual NEGATIVE PD Medical Decision Making - ED course Complexity details: reviewed results, d/w patient ED course: Patient is a 43-year-old female presenting for evaluation of Fluttering sensation in the abdomen for the last 2 days. Reports a concern for although she has an IUD in place. She has currently started her menstrual cycle. She denies abdominal discomfort. Denies dysuria or vaginal discharge. She is resting comfortably here with a benign abdominal exam. Urinalysis is obtained and reviewed and negative for .Reviewed urinalysis and hCG results with patient and she feels reassured. She understands importance of follow-up with gynecology with any concerns regarding her IUD. At this time she does not have any abdominal symptoms to suggest perforation or other emergent process. Departure - Departure Disposition: 01 Home, Self Care Clinical Impression: test negative Condition: Stable Comments: Your test is negative and your urine does not show signs of infection. It is unclear what has been causing your intermittent episodes of feeling fluttering sensations in your abdomen. I would recommend follow-up with your combustion engineer regarding your IUD if you have any concerns. Return to the ER with any worsening symptoms. Forms: PCP List Discharge Date/Time: 09/16/23 04:20
[2023-09-16 03:53] LABS: BILIRUBIN,URINE NEGATIVE (NEGATIVE); GLUCOSE, URINE (UA) NEGATIVE (NEGATIVE); KETONES,URINE (UA) NEGATIVE (NEGATIVE); LEUKOCYTE ESTERASE, URINE NEGATIVE (NEGATIVE); NITRITE,URINE NEGATIVE (NEGATIVE); OCCULT BLOOD,URINE LARGE (NEGATIVE); PH,URINE 5.5 PH (5.0-7.5); PROTEIN,URINE NEGATIVE (NEGATIVE); UROBILINOGEN,URINE 0.2 (NORMAL) E.U./dL (NORMAL)
[2023-09-16 04:00] LABS: CLARITY,URINE CLEAR (CLEAR)
[2023-09-16 04:01] LABS: BACTERIA,URINE Rare /HPF (None Seen); HCG UR QUAL NEGATIVE; MUCUS,URINE Few Strands; SQUAMOUS EPITHELIAL CELL,UR FEW Squamous (<= Few); WBC,URINE 0-3 /HPF (0-5)
== END 2023-09-16 04:20 | disposition home or self-care (01) ==
LOC: ED 02:43
DX: Z32.02 Encounter for pregnancy test, result negative (principal)
CPT/HCPCS: 81001; 81003; 81025; 87086; 99283

== ENCOUNTER 2023-12-12 04:04 | Emergency (ER) | payer MEDICAID ==
[2023-12-12 04:42] VITALS: BP 107/60; O2SAT 100
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
== END 2023-12-12 05:22 | disposition home or self-care (01) ==
LOC: ED 04:04
DX: R20.2 Paresthesia of skin (principal); R06.00 Dyspnea, unspecified
CPT/HCPCS: 93005; 99283

== ENCOUNTER 2023-12-12 14:29 | Outpatient (CLI) | payer MEDICAID | END 2023-12-12 23:59 | disposition critical access hospital (66) | LOC: EMS 14:29 | DX: M54.50 Low back pain, unspecified (principal); R10.813 Right lower quadrant abdominal tenderness; R14.0 Abdominal distension (gaseous); N39.0 Urinary tract infection, site not specified | CPT/HCPCS: A0425; A0429; A0999 ==

== ENCOUNTER 2023-12-12 14:58 | Emergency (ER) | payer MEDICAID ==
[2023-12-12 15:11] VITALS: O2SAT 100
--- NOTE | 2023-12-12 15:36 | ED Physician Documentation ---
History of Present Illness - Stated complaint Stated Complaint: CHEST/ABD PX - Chief complaint Chief Complaint: General - History obtained from History obtained from: Patient - History of Present Illness Pain level max: 4 Pain level now: 3 - Additonal information Additional information: 43 year old female with history of methamphetamine abuse presents stating she feels like there is a fish in her chest and abdomen. She states that she was seen and [facility] and the walk in clinic today for same. She states that sometimes her stomach hurts, sometimes her chest hurts and sometimes her L buttock hurts. She states nothing makes the pain any better or worse. No diarrhea, no constipation. She states she is being treated for a UTI. Denies any chest pain or shortness of breath currently. Review of Systems Constitutional: denies: Fever, Chills Ears: denies: Ear pain Nose: denies: Rhinorrhea / runny nose, Congestion Musculoskeletal: denies: Neck pain, Back pain PD PAST MEDICAL HISTORY - Past Medical History Past Medical History: Yes Cardiovascular: None Respiratory: Asthma Neuro: None Endocrine/Autoimmune: None GI: Other MANAGER OF BUSINESS: None : None HEENT: None Psych: Depression, ADD/ADHD Musculoskeletal: None Derm: Eczema - Past Surgical History Past Surgical History: Yes /MANAGER OF BUSINESS: section - Present Medications Home Medications: Ambulatory Orders Medication Instructions Recorded Confirmed cephALEXin [Keflex] 500 mg PO Q6H #20 cap 12/09/23 - Allergies Allergies/Adverse Reactions: Allergies Allergy/AdvReac Type Severity Reaction Status Date / Time codeine Allergy Unknown Verified 12/12/23 15:11 sulfamethoxazole Allergy Unknown Verified 12/12/23 15:11 [From ] trimethoprim [From ] Allergy Unknown Verified 12/12/23 15:11 - Social History Does the pt smoke?: No Smoking Status: Never smoker Does the pt drink ETOH?: Yes Does the pt have substance abuse?: No - Immunizations Immunizations are current?: Yes - POLST Patient has POLST: No PD ED PE NORMAL - Vitals Vital signs reviewed: Yes - General General: Alert and oriented X 3, No acute distress - HEENT HEENT: Moist mucous membranes - Neck Neck: Supple, no meningeal sign - Cardiac Cardiac: RRR, Strong equal pulses - Respiratory Respiratory: No respiratory distress, Clear bilaterally - Abdomen Abdomen: Soft, Non tender, Non distended - Derm Derm: Warm and dry - Extremities Extremities: No edema, No calf tenderness / cord - Neuro Neuro: Alert and oriented X 3 - Psych Psych: Normal mood, Normal affect Results - Vitals Vitals: Vital Signs - 24 hr 12/12/23 12/12/23 15:06 17:56 Temperature 36.6 C Heart Rate 73 85 Respiratory 16 19 Rate Blood Pressure 135/86 H 138/84 H O2 Saturation 100 100 Oxygen O2 Source Room air - EKG (time done) 1529 EKG releavant findings:: EKG personally interpreted by author of this note. Relevant findings are: Rate: Rate (enter#) (77) Rhythm: NSR [place]: Normal Intervals: Normal [place] QRS: Normal Ischemia: Normal ST segments - Labs Labs: Laboratory Tests 12/12/23 12/12/23 12/12/23 15:33 15:33 15:33 WBC 8.4 RBC 4.40 Hgb 12.9 Hct 39.4 MCV 89.5 MCH 29.3 MCHC 32.7 RDW 13.0 Plt Count 360 MPV 9.5 Neut # (Auto) 5.3 Lymph # (Auto) 2.2 [place] # (Auto) 0.8 Eos # (Auto) 0.1 Baso # (Auto) 0.0 Absolute Nucleated RBC 0.00 Nucleated RBC % 0.0 Sodium 136 Potassium 3.6 Chloride 105 Carbon Dioxide 25 Anion Gap 6.0 BUN 11 Creatinine 0.7 Estimated GFR (MDRD) 91 Glucose 98 Calcium 9.3 Total Bilirubin 0.4 AST 16 ALT 17 Alkaline Phosphatase 71 Troponin I High Sens 2.9 B-Natriuretic Peptide 15 Total Protein 6.6 Albumin 4.0 Globulin 2.6 Albumin/Globulin Ratio 1.5 Lipase 11 - Rads (name of study) cxr Relevant Findings:: Final report received PD Medical Decision Making - ED course Complexity details: reviewed results, re-evaluated patient, considered differential, d/w patient ED course: Patient appears to be under the influence of methamphetamines. She does not have any evidence of acute coronary syndrome, pulmonary embolus. Abdomen is soft, nontender nondistended. Tolerating p.o. without difficulty. No hypoxia. No respiratory distress. No rashes. No fevers. No evidence of sepsis. No evidence of endocarditis. We will have the patient follow-up with her doctor for further care. She is not suicidal or homicidal. Does not appear gravely disabled. Patient counseled regarding signs and symptoms for which I believe and urgent re-evaluation would be necessary. Patient with good understanding of and agreement to plan and is comfortable going home at this time This document was made in part using voice recognition software. While efforts are made to proofread this document, sound alike and grammatical errors may occur. Departure - Departure Disposition: Home, Self Care Clinical Impression: Generalized muscle ache Condition: Good Instructions: ED Acute Pain [facility] Follow-Up: your,doctor in 1 week [Other] Comments: Your testing does not show any acute abnormalities today. Please follow up with your doctor for further care. Return if you worsen. Forms: PCP List Discharge Date/Time: 12/12/23 17:57
[2023-12-12 15:39] LABS: BASOPHILS % (AUTO) 0.4 %; EOSINOPHILS # (AUTO) 0.1 10^3/uL (0.0-0.7); EOSINOPHILS % (AUTO) 1.1 %; HCT - HEMATOCRIT 39.4 % (37.0-47.0); HGB - HEMOGLOBIN 12.9 g/dL (12.0-16.0); LYMPHOCYTES # (AUTO) 2.2 10^3/uL (1.5-3.5); LYMPHOCYTES % (AUTO) 25.7 %; MEAN CORPUSCULAR HEMOGLOBIN 29.3 pg (27.0-31.0); MEAN CORPUSCULAR HGB CONC 32.7 g/dL (32.0-36.0); MEAN CORPUSCULAR VOLUME 89.5 fL (81.0-99.0); MEAN PLATELET VOLUME 9.5 fL (7.9-10.8); MONOCYTES # (AUTO) 0.8 10^3/uL (0.0-1.0); MONOCYTES % (AUTO) 9.1 %; NEUTROPHILS # (AUTO) 5.3 10^3/uL (1.5-6.6); NEUTROPHILS % (AUTO) 63.6 %; PLT - PLATELET COUNT 360 10^3/uL (130-450); WHITE BLOOD COUNT 8.4 x10^3/uL (4.8-10.8)
--- NOTE | 2023-12-12 15:44 | XRAY Report ---
PROCEDURE: Chest 1V INDICATIONS: Chest Pain TECHNIQUE: One view of the chest was acquired. COMPARISON: None. FINDINGS: Surgical changes and devices: None. Lungs and pleura: No pleural effusions or pneumothorax. Lungs are clear. Mediastinum: Mediastinal contours appear normal. Heart size is normal. Bones and chest wall: No suspicious bony lesions. Overlying soft tissues appear unremarkable. IMPRESSION: No acute cardiopulmonary process. Reviewed by: Victor M Matos MD on 12/12/2023 3:42 PM PDT Approved by: Victor M Matos MD on 12/12/2023 3:42 PM PDT Station ID: [id number]
[2023-12-12 15:55] LABS: ALBUMIN/GLOBULIN RATIO 1.5 (1.0-2.2); BILIRUBIN,TOTAL 0.4 mg/dL (0.2-1.0); CALCIUM 9.3 mg/dL (8.5-10.3); CREATININE 0.7 mg/dL (0.6-1.3); POTASSIUM 3.6 mmol/L (3.5-4.5); TOTAL PROTEIN 6.6 g/dL (6.4-8.9)
[2023-12-12 15:59] LABS: TROPONIN I HIGH SENSITIVITY 2.9 ng/L (2.3-14.8)
[2023-12-12 17:58] VITALS: BP 138/84
== END 2023-12-12 17:57 | disposition home or self-care (01) ==
LOC: ED 14:58
DX: M79.10 Myalgia, unspecified site (principal); R20.2 Paresthesia of skin; R06.00 Dyspnea, unspecified
CPT/HCPCS: 36415; 80053; 83690; 83880; 84484; 85025; 93005; 99283; 99284

== ENCOUNTER 2023-12-14 23:15 | Outpatient (CLI) | payer MEDICAID | END 2023-12-14 23:59 | disposition critical access hospital (66) | LOC: EMS 23:15 | DX: M54.9 Dorsalgia, unspecified (principal); R10.12 Left upper quadrant pain; R10.32 Left lower quadrant pain; M25.561 Pain in right knee; M79.651 Pain in right thigh | CPT/HCPCS: A0425; A0429; A0999 ==

== ENCOUNTER 2023-12-14 23:35 | Emergency (ER) | payer MEDICAID ==
[2023-12-14 23:56] VITALS: O2SAT 99
[2023-12-15 00:09] LABS: BASOPHILS % (AUTO) 0.4 %; EOSINOPHILS # (AUTO) 0.1 10^3/uL (0.0-0.7); EOSINOPHILS % (AUTO) 1.5 %; HCT - HEMATOCRIT 39.9 % (37.0-47.0); HGB - HEMOGLOBIN 12.8 g/dL (12.0-16.0); LYMPHOCYTES # (AUTO) 2.3 10^3/uL (1.5-3.5); LYMPHOCYTES % (AUTO) 25.5 %; MEAN CORPUSCULAR HEMOGLOBIN 29.4 pg (27.0-31.0); MEAN CORPUSCULAR HGB CONC 32.1 g/dL (32.0-36.0); MEAN CORPUSCULAR VOLUME 91.7 fL (81.0-99.0); MEAN PLATELET VOLUME 9.5 fL (7.9-10.8); MONOCYTES # (AUTO) 0.9 10^3/uL (0.0-1.0); MONOCYTES % (AUTO) 9.8 %; NEUTROPHILS # (AUTO) 5.6 10^3/uL (1.5-6.6); NEUTROPHILS % (AUTO) 62.6 %; PLT - PLATELET COUNT 337 10^3/uL (130-450); RED BLOOD COUNT 4.35 10^6/uL (4.20-5.40); RED CELL DISTRIBUTION WIDTH 13.1 % (12.0-15.0); WHITE BLOOD COUNT 8.9 x10^3/uL (4.8-10.8)
[2023-12-15 00:28] LABS: ALKALINE PHOSPHATASE 67 IU/L (42-121); ALT ALANINE AMINOTRANSFERASE 16 IU/L (10-60); AST ASPARTATE AMINOTRANSFERASE 16 IU/L (10-42); BILIRUBIN,TOTAL 0.3 mg/dL (0.2-1.0); BUN - BLOOD UREA NITROGEN 13 mg/dL (6-20); CALCIUM 9.1 mg/dL (8.5-10.3); CARBON DIOXIDE - CO2 31 mmol/L (21-32); CHLORIDE 104 mmol/L (101-111); CREATININE 0.8 mg/dL (0.6-1.3); GFR - MDRD 78 (>89); GLUCOSE 107 mg/dL (74-104); POTASSIUM 3.7 mmol/L (3.5-4.5); SODIUM 140 mmol/L (135-145)
[2023-12-15 00:29] LABS: LIPASE < 10 U/L (11-82)
--- NOTE | 2023-12-15 00:44 | ED Physician Documentation ---
History of Present Illness - Stated complaint Stated Complaint: UPPER BACK/KNEE PAIN, BUGS IN SKIN - Chief complaint Chief Complaint: Back Pain - History obtained from History obtained from: Patient - Additonal information Additional information: Patient is a 43-year-old female presenting for evaluation of pain that she was experiencing in the right leg and also intermittently in the abdomen. However she states that since being here her pain has resolved and she has been sleeping without issue. She was recently seen here and diagnosed with a UTI and has been taking her antibiotics. Denies dysuria or hematuria.She has recently tested positive for methamphetamine use but denies that she took this. She has also been recently seen at [facility] and states that she was told she tested positive for MDMA there and also states that she does not know how she would have gotten that into her system. Denies alcohol use. Review of Systems Constitutional: denies: Fever Cardiac: denies: Chest pain / pressure Respiratory: denies: Dyspnea GI: reports: Abdominal Pain. denies: Vomiting : denies: Dysuria Musculoskeletal: reports: Extremity pain PD PAST MEDICAL HISTORY - Past Medical History Cardiovascular: None Respiratory: Asthma Neuro: None Endocrine/Autoimmune: None GI: Other CRYSTAL SLICER: None : None HEENT: None Psych: Depression, ADD/ADHD Musculoskeletal: None Derm: Eczema - Past Surgical History Past Surgical History: Yes /CRYSTAL SLICER: section - Present Medications Home Medications: Ambulatory Orders Medication Instructions Recorded Confirmed cephALEXin [Keflex] 500 mg PO Q6H #20 cap 12/09/23 - Allergies Allergies/Adverse Reactions: Allergies Allergy/AdvReac Type Severity Reaction Status Date / Time codeine Allergy Unknown Verified 12/14/23 23:47 sulfamethoxazole Allergy Unknown Verified 12/14/23 23:47 [From ] trimethoprim [From ] Allergy Unknown Verified 12/14/23 23:47 - Social History Does the pt smoke?: No Smoking Status: Never smoker Does the pt drink ETOH?: Yes Does the pt have substance abuse?: No - Immunizations Immunizations are current?: Yes - POLST Patient has POLST: No PD ED PE NORMAL - General General: Alert and oriented X 3, No acute distress, Well developed/nourished - HEENT HEENT: Atraumatic - Neck Neck: Supple, no meningeal sign - Cardiac Cardiac: RRR, Strong equal pulses - Respiratory Respiratory: No respiratory distress, Clear bilaterally - Abdomen Abdomen: Normal bowel sounds, Soft, Non tender, Non distended - Derm Derm: Warm and dry - Neuro Neuro: Normal speech Results - Vitals Vitals: Vital Signs - 24 hr 12/14/23 12/15/23 23:43 01:09 Temperature 36.9 C Heart Rate 84 82 Respiratory 20 14 Rate Blood Pressure 125/77 138/77 H O2 Saturation 99 99 Oxygen O2 Source Room air - Labs Labs: Laboratory Tests 12/15/23 12/15/23 12/15/23 00:06 00:06 00:06 WBC 8.9 RBC 4.35 Hgb 12.8 Hct 39.9 MCV 91.7 MCH 29.4 MCHC 32.1 RDW 13.1 Plt Count 337 MPV 9.5 Neut # (Auto) 5.6 Lymph # (Auto) 2.3 [place] # (Auto) 0.9 Eos # (Auto) 0.1 Baso # (Auto) 0.0 Absolute Nucleated RBC 0.00 Nucleated RBC % 0.0 Sodium 140 Potassium 3.7 Chloride 104 Carbon Dioxide 31 Anion Gap 5.0 L BUN 13 Creatinine 0.8 Estimated GFR (MDRD) 78 L Glucose 107 H Calcium 9.1 Total Bilirubin 0.3 AST 16 ALT 16 Alkaline Phosphatase 67 Total Protein 6.0 L Albumin 4.0 Globulin 2.0 L Albumin/Globulin Ratio 2.0 Lipase < 10 L Serum HCG, Qual NEGATIVE Urine Color Urine Clarity Urine pH Ur Specific [place] Urine Protein Urine Glucose (UA) Urine Ketones Urine Occult Blood Urine Nitrite Urine Bilirubin Urine Urobilinogen Ur Leukocyte Esterase Urine RBC Urine WBC Ur Squamous Epith Cells Urine Bacteria Urine Mucus Ur Microscopic Review Urine Culture Comments Urine HCG, Qual 12/15/23 00:51 WBC RBC Hgb Hct MCV MCH MCHC RDW Plt Count MPV Neut # (Auto) Lymph # (Auto) [place] # (Auto) Eos # (Auto) Baso # (Auto) Absolute Nucleated RBC Nucleated RBC % Sodium Potassium Chloride Carbon Dioxide Anion Gap BUN Creatinine Estimated GFR (MDRD) Glucose Calcium Total Bilirubin AST ALT Alkaline Phosphatase Total Protein Albumin Globulin Albumin/Globulin Ratio Lipase Serum HCG, Qual Urine Color YELLOW Urine Clarity HAZY Urine pH 5.5 Ur Specific [place] >=1.030 H Urine Protein TRACE Urine Glucose (UA) NEGATIVE Urine Ketones NEGATIVE Urine Occult Blood LARGE H Urine Nitrite NEGATIVE Urine Bilirubin NEGATIVE Urine Urobilinogen 0.2 (NORMAL) Ur Leukocyte Esterase NEGATIVE Urine RBC 0-5 Urine WBC 4-5 Ur Squamous Epith Cells MANY Squamous H Urine Bacteria Few Urine Mucus Marked Strands Ur Microscopic Review INDICATED Urine Culture Comments NOT INDICATED Urine HCG, Qual NEGATIVE PD Medical Decision Making - ED course Complexity details: reviewed results, d/w patient ED course: Patient is a 43-year-old presenting for evaluation of pain in the right leg as well as at times in the abdomen. However she states that her pain has resolved here and she no longer has any complaints. Her abdominal exam is benign. No signs of DVT or cellulitis on lower extremity exam. Distal pulses intact. She is ambulatory. CBC and chemistries were ordered and reviewed without significant findings. She is not . She has had multiple ED visits both to [facility] as well as to [facility] in the last several days. She reports she is living with her mother here as well as with her boyfriend and children. She states that she feels safe at home. She did test positive for methamphetamines on a recent ED visit. She does not appear to be gravely disabled And was encouraged to have outpatient follow-up with her primary care. Departure - Departure Disposition: 01 Home, Self Care Clinical Impression: Right leg pain, Abdominal pain Condition: Stable Instructions: ED Abdominal Pain Female Non-Specific Abdominal Pain, ED RICE Comments: Your labs today were reassuring without any significant findings. I would recommend close follow-up with your primary care doctor. Please return to the ER with any worsening symptoms. Discharge Date/Time: 12/15/23 01:14
[2023-12-15 01:00] LABS: BILIRUBIN,URINE NEGATIVE (NEGATIVE); GLUCOSE, URINE (UA) NEGATIVE (NEGATIVE); KETONES,URINE (UA) NEGATIVE (NEGATIVE); LEUKOCYTE ESTERASE, URINE NEGATIVE (NEGATIVE); NITRITE,URINE NEGATIVE (NEGATIVE); OCCULT BLOOD,URINE LARGE (NEGATIVE); PH,URINE 5.5 PH (5.0-7.5); PROTEIN,URINE TRACE mg/dL (NEGATIVE); UROBILINOGEN,URINE 0.2 (NORMAL) E.U./dL (NORMAL)
[2023-12-15 01:02] LABS: CLARITY,URINE HAZY (CLEAR); HCG UR QUAL NEGATIVE
[2023-12-15 01:07] LABS: BACTERIA,URINE Few /HPF (None Seen); MUCUS,URINE Marked Strands; RBC,URINE 0-5 /HPF (0-5); SQUAMOUS EPITHELIAL CELL,UR MANY Squamous (<= Few)
[2023-12-15 01:10] LABS: HCG,QUALITATIVE BLOOD NEGATIVE
[2023-12-15 01:12] VITALS: BP 138/77
== END 2023-12-15 01:14 | disposition home or self-care (01) ==
LOC: EDUNIT# → ED 23:35
DX: M79.604 Pain in right leg (principal); R10.9 Unspecified abdominal pain; J45.909 Unspecified asthma, uncomplicated
CPT/HCPCS: 36415; 80053; 81001; 81003; 81025; 83690; 84703; 85025; 87086; 99283

== ENCOUNTER 2023-12-27 23:08 | Emergency (ER) | payer MEDICAID ==
[2023-12-27 23:30] VITALS: BP 125/83; O2SAT 98
--- NOTE | 2023-12-28 00:08 | ED Physician Documentation ---
History of Present Illness - Stated complaint Stated Complaint: LUMP ON LEFT LEG - Chief complaint Chief Complaint: General - History obtained from History obtained from: Patient - Additonal information Additional information: 43yF with pmh methamphetamine abuse, frequent ED visits (see [facility]) p/w sensation of lump to L thigh as well as lumps that migrate to throat, chest and abdomen. patient states today it felt like rubber band sensation. She was about to see her primary care provider but as she was waiting she states she had to leave. denies fever, hemoptysis, soa, n/v/d. she does have chronic nonproductive cough and is daily vape user. endorses constipation for which she takes miralax. last BM today was brown stool. PD PAST MEDICAL HISTORY - Past Medical History Past Medical History: Yes Cardiovascular: None Respiratory: Asthma Neuro: None Endocrine/Autoimmune: None GI: Other DIGITAL ACCOUNT MANAGER: None : None HEENT: None Psych: Depression, ADD/ADHD Musculoskeletal: None Derm: Eczema - Past Surgical History Past Surgical History: Yes /DIGITAL ACCOUNT MANAGER: section - Present Medications Home Medications: Ambulatory Orders Medication Instructions Recorded Confirmed cephALEXin [Keflex] 500 mg PO Q6H #20 cap 12/09/23 - Allergies Allergies/Adverse Reactions: Allergies Allergy/AdvReac Type Severity Reaction Status Date / Time codeine Allergy Unknown Verified 12/27/23 23:16 sulfamethoxazole Allergy Unknown Verified 12/27/23 23:16 [From ] trimethoprim [From ] Allergy Unknown Verified 12/27/23 23:16 - Social History Does the pt smoke?: No Smoking Status: Never smoker Does the pt drink ETOH?: No Does the pt have substance abuse?: No - Immunizations Immunizations are current?: Yes - POLST Patient has POLST: No PD ED PE NORMAL - Vitals Vital signs reviewed: Yes - General General: Alert and oriented X 3, No acute distress, Well developed/nourished - HEENT HEENT: Atraumatic, PERRL, EOMI - Neck Neck: Supple, no meningeal sign - Cardiac Cardiac: RRR - Respiratory Respiratory: No respiratory distress, Clear bilaterally - Abdomen Abdomen: Non tender, Non distended, No organomegaly - Derm Derm: Normal color, Warm and dry - Extremities Extremities: No deformity, No tenderness to palpate, Normal ROM s pain, No edema - Neuro Neuro: Alert and oriented X 3, No motor deficit, No sensory deficit Results - Vitals Vitals: Vital Signs - 24 hr 12/27/23 23:16 Temperature 36.7 C Heart Rate 104 H Respiratory 19 Rate Blood Pressure 125/83 H O2 Saturation 98 Oxygen O2 Source Room air PD Medical Decision Making - ED course ED course: 43yF p/w multiple medical complaints including sensation of lumps all over body. patient has benign exam and was reassured after discussion. plan to f/u with pcp. return precautions given. Departure - Departure Disposition: 01 Home, Self Care Clinical Impression: Body aches Condition: Stable Instructions: ED Muscle Aching Comments: You were seen in the emergency department for medical evaluation. Please consider adding dulcolax to your stool regimen. Please follow-up with your primary care provider and return to the emergency department if you have any new or worsening symptoms or other concerns.
== END 2023-12-28 00:11 | disposition home or self-care (01) ==
LOC: ED 23:08
DX: R52 Pain, unspecified (principal); F15.10 Other stimulant abuse, uncomplicated
CPT/HCPCS: 99281; 99283

== ENCOUNTER 2023-12-28 09:29 | Emergency (ER) | payer MEDICAID ==
[2023-12-28 09:58] VITALS: BP 105/70; O2SAT 100
== END 2023-12-28 13:00 | disposition left against medical advice (07) ==
LOC: ED 09:29
DX: Z53.21 Procedure and treatment not carried out due to patient leaving prior to being seen by health care provider (principal)
CPT/HCPCS: 80053; 83690; 84443; 85025; 93005

== ENCOUNTER 2023-12-29 20:30 | Outpatient (CLI) | payer MEDICAID | END 2023-12-29 20:31 | disposition critical access hospital (66) | LOC: EMS 20:30 | DX: R68.89 Other general symptoms and signs (principal); R45.89 Other symptoms and signs involving emotional state | CPT/HCPCS: A0425; A0429; A0999 ==

== ENCOUNTER 2023-12-29 20:49 | Emergency (ER) | payer MEDICAID ==
--- NOTE | 2023-12-29 21:03 | ED Physician Documentation ---
History of Present Illness - Stated complaint Stated Complaint: FLU LIKE SYMP - Additonal information Additional information: 43-year-old female presents emergency department via EMS for flulike symptoms. Patient has been receiving multiple times for the similar complaints recently this is her sixth ER visit since December 11 for similar complaints. Patient does use daily methamphetamine she says that she smokes this because no one will prescribe her Adderall for her ADD. She says that this is self-medicating for this. She says she feels like something is stabbing in her abdomen generalized malaise and difficult gathering complete history on patient's symptoms and what brings her into the emergency department. Patient's friend at bedside unclear if it is her significant other not gave a note to the front elevator operator for concerns of patient being a harm to herself and others. Patient has been having increased hallucinations and delusions about something being in her body also saying that if she had a scalpel she would cut out what is inside of her. PD PAST MEDICAL HISTORY - Past Medical History Cardiovascular: None Respiratory: Asthma Neuro: None Endocrine/Autoimmune: None GI: Other HAND SANDER: None : None HEENT: None Psych: Depression, ADD/ADHD Musculoskeletal: None Derm: Eczema - Past Surgical History Past Surgical History: Yes /HAND SANDER: section - Present Medications Home Medications: Ambulatory Orders Medication Instructions Recorded Confirmed cephALEXin [Keflex] 500 mg PO Q6H #20 cap 12/09/23 - Allergies Allergies/Adverse Reactions: Allergies Allergy/AdvReac Type Severity Reaction Status Date / Time codeine Allergy Unknown Verified 12/28/23 09:52 sulfamethoxazole Allergy Unknown Verified 12/28/23 09:52 [From ] trimethoprim [From ] Allergy Unknown Verified 12/28/23 09:52 - Social History Does the pt smoke?: No Smoking Status: Never smoker Does the pt drink ETOH?: No Does the pt have substance abuse?: No - Immunizations Immunizations are current?: Yes - POLST Patient has POLST: No PD ED PE NORMAL - Vitals Vital signs reviewed: Yes - General General: Alert and oriented X 3, Well developed/nourished, Other (Disheveled and ill-appearing) - Cardiac Cardiac: RRR, No murmur - Respiratory Respiratory: No respiratory distress, Clear bilaterally - Abdomen Abdomen: Soft, Other (Generalized abdominal tenderness). No: Non distended - Derm Derm: Normal color, No rash, Other (Diaphoretic) - Extremities Extremities: No edema PD ED PE EXPANDED - Psych Psych: Intoxicated / AOB, Withdrawn, Poor eye contact, Anxious, Agitated, Manic, Pressured speech, Tactile hallucinations, Delusions Results - Vitals Vitals: Vital Signs - 24 hr 12/29/23 21:01 Temperature 36.0 C L Heart Rate 91 Respiratory 22 Rate Blood Pressure 126/60 O2 Saturation 100 Oxygen O2 Source Room air - EKG (time done) 2126 EKG releavant findings:: EKG personally interpreted by author of this note. Relevant findings are: Rate: Rate (enter#) (86) Rhythm: NSR [place]: Normal Intervals: Normal [place] QRS: Normal Ischemia: Normal ST segments Computer interpretation: Agree with computer - Labs Labs: Laboratory Tests 12/29/23 12/29/23 12/29/23 21:21 21:21 21:21 WBC 9.1 RBC 4.59 Hgb 13.1 Hct 42.0 MCV 91.5 MCH 28.5 MCHC 31.2 L RDW 13.1 Plt Count 341 MPV 10.0 Neut # (Auto) 5.5 Lymph # (Auto) 2.5 [place] # (Auto) 0.9 Eos # (Auto) 0.1 Baso # (Auto) 0.1 Absolute Nucleated RBC 0.00 Nucleated RBC % 0.0 Sodium 136 Potassium 3.6 Chloride 103 Carbon Dioxide 27 Anion Gap 6.0 BUN 13 Creatinine 0.8 Estimated GFR (MDRD) 78 L Glucose 102 Calcium 9.2 Magnesium 1.7 Total Bilirubin 0.4 AST 14 ALT 15 Alkaline Phosphatase 71 Total Creatine Kinase 87 Troponin I High Sens 2.8 B-Natriuretic Peptide < 5 L Total Protein 6.5 Albumin 4.2 Globulin 2.3 Albumin/Globulin Ratio 1.8 Lipase 15 TSH 2.38 Urine Color Urine Clarity Urine pH Ur Specific [place] Urine Protein Urine Glucose (UA) Urine Ketones Urine Occult Blood Urine Nitrite Urine Bilirubin Urine Urobilinogen Ur Leukocyte Esterase Urine RBC Urine WBC Ur Squamous Epith Cells Urine Bacteria Ur Microscopic Review Urine Culture Comments Urine HCG, Qual Salicylates < 1.5 Urine Opiates Screen Ur Buprenorphine Scrn Ur Oxycodone Screen Urine Methadone Screen Acetaminophen 2.1 Ur Barbiturates Screen Ur Tricyclics Screen Ur Phencyclidine Scrn Ur Amphetamine Screen U Methamphetamines Scrn U Benzodiazepines Scrn Urine Cocaine Screen U Cannabinoids Screen Ur Drug Screen Comment Ethyl Alcohol < 10.0 12/29/23 21:45 WBC RBC Hgb Hct MCV MCH MCHC RDW Plt Count MPV Neut # (Auto) Lymph # (Auto) [place] # (Auto) Eos # (Auto) Baso # (Auto) Absolute Nucleated RBC Nucleated RBC % Sodium Potassium Chloride Carbon Dioxide Anion Gap BUN Creatinine Estimated GFR (MDRD) Glucose Calcium Magnesium Total Bilirubin AST ALT Alkaline Phosphatase Total Creatine Kinase Troponin I High Sens B-Natriuretic Peptide Total Protein Albumin Globulin Albumin/Globulin Ratio Lipase TSH Urine Color YELLOW Urine Clarity CLOUDY Urine pH 6.0 Ur Specific [place] >=1.030 H Urine Protein TRACE Urine Glucose (UA) NEGATIVE Urine Ketones TRACE Urine Occult Blood SMALL H Urine Nitrite NEGATIVE Urine Bilirubin NEGATIVE Urine Urobilinogen 0.2 (NORMAL) Ur Leukocyte Esterase MODERATE H Urine RBC 6-10 H Urine WBC >25 H Ur Squamous Epith Cells MANY Squamous H Urine Bacteria Many H Ur Microscopic Review INDICATED Urine Culture Comments NOT INDICATED Urine HCG, Qual NEGATIVE Salicylates Urine Opiates Screen NEGATIVE Ur Buprenorphine Scrn NEGATIVE Ur Oxycodone Screen NEGATIVE Urine Methadone Screen NEGATIVE Acetaminophen Ur Barbiturates Screen NEGATIVE Ur Tricyclics Screen NEGATIVE Ur Phencyclidine Scrn NEGATIVE Ur Amphetamine Screen POSITIVE H U Methamphetamines Scrn POSITIVE H U Benzodiazepines Scrn NEGATIVE Urine Cocaine Screen NEGATIVE U Cannabinoids Screen NEGATIVE Ur Drug Screen Comment CUTOFF CONC BELOW: Ethyl Alcohol PD Medical Decision Making - ED course ED course: Patient presents emergency department for ongoing concerns that something is inside her body. She says that she feels a lot of water and something crawling inside of her from her neck to her pelvis. Given that this is patient's seventh visit here it would be 1/13 visit overall in a very short period of time within the last month or so concerned that patient is becoming quite delusional and risk to herself and others. Patient's significant other brought a note to the front elevator operator saying that he was concerned for her safety and the safety of others as patient has made multiple comments about hurting herself and cutting herself open with a scalpel as well as hurting others. When I asked the patient if she be willing to stay for hospitalization to withdrawal from methamphetamine abdirahman lucas states that she is unwilling to stay and says that if we are willing to give her Adderall prescription she will need to continue to take the methamphetamine. When the nurse went to go check on the patient she was no longer in the room and had left on foot. Given patient's Statements thinking multiple ER visits and increased delusions I do believe that she is at risk to herself and others and DCR needs to be involved for possible detainment under [place] law. 91 has been dispatched RN as well as community health counselor have notified police and we are currently looking for patient. Report given to Dr. Castro to further manage the situation due to change of shift.
[2023-12-29 21:28] LABS: BASOPHILS # (AUTO) 0.1 10^3/uL (0.0-0.1); BASOPHILS % (AUTO) 0.6 %; EOSINOPHILS # (AUTO) 0.1 10^3/uL (0.0-0.7); EOSINOPHILS % (AUTO) 1.3 %; HGB - HEMOGLOBIN 13.1 g/dL (12.0-16.0); LYMPHOCYTES # (AUTO) 2.5 10^3/uL (1.5-3.5); LYMPHOCYTES % (AUTO) 27.5 %; MEAN CORPUSCULAR HEMOGLOBIN 28.5 pg (27.0-31.0); MEAN CORPUSCULAR HGB CONC 31.2 g/dL (32.0-36.0); MEAN CORPUSCULAR VOLUME 91.5 fL (81.0-99.0); MONOCYTES # (AUTO) 0.9 10^3/uL (0.0-1.0); MONOCYTES % (AUTO) 10.4 %; NEUTROPHILS # (AUTO) 5.5 10^3/uL (1.5-6.6); PLT - PLATELET COUNT 341 10^3/uL (130-450); RED BLOOD COUNT 4.59 10^6/uL (4.20-5.40); RED CELL DISTRIBUTION WIDTH 13.1 % (12.0-15.0); WHITE BLOOD COUNT 9.1 x10^3/uL (4.8-10.8)
[2023-12-29 21:43] LABS: ACETAMINOPHEN 2.1 ug/mL; ALBUMIN 4.2 g/dL (3.2-5.5); ALBUMIN/GLOBULIN RATIO 1.8 (1.0-2.2); ALKALINE PHOSPHATASE 71 IU/L (42-121); ALT ALANINE AMINOTRANSFERASE 15 IU/L (10-60); AST ASPARTATE AMINOTRANSFERASE 14 IU/L (10-42); BILIRUBIN,TOTAL 0.4 mg/dL (0.2-1.0); BUN - BLOOD UREA NITROGEN 13 mg/dL (6-20); CALCIUM 9.2 mg/dL (8.5-10.3); CARBON DIOXIDE - CO2 27 mmol/L (21-32); CHLORIDE 103 mmol/L (101-111); CK- CREATINE KINASE 87 IU/L (30-223); CREATININE 0.8 mg/dL (0.6-1.3); ETOH - ETHANOL < 10.0 mg/dL; GFR - MDRD 78 (>89); GLUCOSE 102 mg/dL (74-104); LIPASE 15 U/L (11-82); MAGNESIUM 1.7 mg/dL (1.7-2.3); POTASSIUM 3.6 mmol/L (3.5-4.5); SODIUM 136 mmol/L (135-145); TOTAL PROTEIN 6.5 g/dL (6.4-8.9)
[2023-12-29 21:50] LABS: TROPONIN I HIGH SENSITIVITY 2.8 ng/L (2.3-14.8)
[2023-12-29 21:59] LABS: THYROID STIMULATING HORMONE 2.38 uIU/mL (0.34-5.60)
[2023-12-29 22:07] LABS: BILIRUBIN,URINE NEGATIVE (NEGATIVE); GLUCOSE, URINE (UA) NEGATIVE (NEGATIVE); KETONES,URINE (UA) TRACE mg/dL (NEGATIVE); LEUKOCYTE ESTERASE, URINE MODERATE (NEGATIVE); NITRITE,URINE NEGATIVE (NEGATIVE); OCCULT BLOOD,URINE SMALL (NEGATIVE); PROTEIN,URINE TRACE mg/dL (NEGATIVE); UROBILINOGEN,URINE 0.2 (NORMAL) E.U./dL (NORMAL)
[2023-12-29 22:08] LABS: CLARITY,URINE CLOUDY (CLEAR); HCG UR QUAL NEGATIVE
[2023-12-29 22:14] LABS: SALICYLATE < 1.5 mg/dL
[2023-12-29 22:19] LABS: AMPHETAMINE SCREEN,URINE POSITIVE (NEGATIVE); BACTERIA,URINE Many /HPF (None Seen); BARBITURATE SCREEN,UR NEGATIVE (NEGATIVE); BENZODIAZEPINES SCREEN, URINE NEGATIVE (NEGATIVE); COCAINE SCREEN URINE NEGATIVE (NEGATIVE); METHADONE SCREEN, URINE NEGATIVE (NEGATIVE); METHAMPHETAMINES SCREEN, URINE POSITIVE (NEGATIVE); OPIATE SCREEN, URINE NEGATIVE (NEGATIVE); SQUAMOUS EPITHELIAL CELL,UR MANY Squamous (<= Few); THC CANNABINOID SCREEN, URINE NEGATIVE (NEGATIVE); TRICYCLIC ANTIDEPRESSANT,URINE NEGATIVE (NEGATIVE); WBC,URINE >25 /HPF (0-5)
[2023-12-29 22:20] LABS: BUPRENORPHINE SCREEN, URINE NEGATIVE (NEGATIVE); OXYCODONE SCREEN, URINE NEGATIVE (NEGATIVE)
--- NOTE | 2023-12-29 22:36 | ED Physician Documentation ---
ED Addendum - Addendum Addendum: 12/29/23 22:35 Patient returned to the ED after eloping by 's deputy. Notified patient's that we would be holding her for DCR evaluation. She voices intent to leave, but at this point we will place her in social restraints (paper scrubs) and a sitter if able. 12/29/23 23:[address] Londono at this time pending DCR evaluation
--- NOTE | 2023-12-29 23:14 | XRAY Report ---
PROCEDURE: Chest 1V INDICATIONS: Chest Pain TECHNIQUE: One view of the chest was acquired. COMPARISON: Chest radiograph 12/12/2023. FINDINGS: Surgical changes and devices: None. Lungs and pleura: No pleural effusions or pneumothorax. Lungs are clear. Mediastinum: Mediastinal contours appear normal. Heart size is normal. Bones and chest wall: No suspicious bony lesions. Overlying soft tissues appear unremarkable. IMPRESSION: No acute cardiopulmonary process. Reviewed by: Vijaya Garcia MD, PhD on 12/29/2023 11:13 PM PDT Approved by: Vijaya Garcia MD, PhD on 12/29/2023 11:13 PM PDT Station ID: [id number]
[2023-12-30] MEDS: OLANZapine ODT 5 MG TABLET TL STA (00:21)
[2023-12-30] MEDS: LORazepam 1 MG TABLET PO STA (00:21)
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
[2023-12-30 06:18] VITALS: BP 160/80; O2SAT 95
== END 2023-12-30 10:25 ==
LOC: ED 20:49
DX: F29 Unspecified psychosis not due to a substance or known physiological condition (principal); J45.909 Unspecified asthma, uncomplicated
CPT/HCPCS: 36415; 80053; 80143; 80179; 80306; 81001; 81003; 81025; 82077; 82550; 83690; 83735; 83880; 84443; 84484; 85025; 87086; 87635; 93005; 99285

== ENCOUNTER 2024-02-01 18:05 | Outpatient (CLI) | payer MEDICAID | END 2024-02-01 18:06 | disposition critical access hospital (66) | LOC: EMS 18:05 | DX: R07.89 Other chest pain (principal) | CPT/HCPCS: A0425; A0429; A0999 ==

== ENCOUNTER 2024-02-01 18:27 | Emergency (ER) | payer MEDICAID ==
[2024-02-01 18:44] VITALS: O2SAT 99
--- NOTE | 2024-02-01 19:11 | ED Physician Documentation ---
PD HPI CHEST PAIN - Stated complaint Stated Complaint: CHEST PX - Chief complaint Chief Complaint: Cardiac - Additional information Additional information: 43-year-old female presents emergency department for multiple complaints. 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 She comes in for concerns of possible chest pain but patient says that this feels like her chronic chest pain that she has come to the ER multiple times were does not feel like it has changed. Patient also reports that she was having a hard time finding some of her words she says only last for about a second and then she is able to speak without any difficulty. She also reports that she was prescribed lithium but has been out of lithium now for about 2 weeks and does not know who to follow-up with and how to get a refill of this medication. While patient is sitting back in the room she reports that she has complete alleviation of all symptoms she said that she is able to crack her neck while waiting to be evaluated and says that she is able to speak more clearly now her chest pain is resolved and she feels like she was able to self adjust her neck with complete alleviation of symptoms. 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 : None HEENT: None Psych: Depression, ADD/ADHD Musculoskeletal: None Derm: Eczema - Past Surgical History Past Surgical History: Yes /RE[employer]IL [employer]IST: section - Allergies Allergies/Adverse Reactions: Allergies Allergy/AdvReac Type Severity Reaction Status Date / Time codeine Allergy Unknown Verified 02/01/24 18:39 sulfamethoxazole Allergy Unknown Verified 02/01/24 18:39 [From ] trimethoprim [From ] Allergy Unknown Verified 02/01/24 18:39 - Social History Does the pt smoke?: No Smoking Status: Never smoker Does the pt drink ETOH?: No Does the pt have substance abuse?: No - Immunizations Immunizations are current?: Yes - POLST Patient has POLST: No PD ED PE NORMAL - Vitals Vital signs reviewed: Yes - General General: Alert and oriented X 3, No acute distress, Well developed/nourished - HEENT HEENT: Atraumatic, PERRL - Neck Neck: Supple, no meningeal sign - Cardiac Cardiac: RRR - Respiratory Respiratory: No respiratory distress - Abdomen Abdomen: Normal bowel sounds - Psych Psych: Normal mood, Normal affect Results - Vitals Vitals: Vital Signs - 24 hr 02/01/24 02/01/24 02/01/24 18:32 19:20 19:49 Temperature 36.4 C L Heart Rate 100 88 Respiratory 20 18 16 Rate Blood Pressure 128/89 H 136/85 H O2 Saturation 99 99 Oxygen O2 Source Room air - EKG (time done) 1834 EKG releavant findings:: EKG personally interpreted by author of this note. Relevant findings are: Rate: Rate (enter#) (99) Rhythm: NSR [place]: Normal Intervals: Normal [place] QRS: Normal Ischemia: Normal ST segments Computer interpretation: Agree with computer PD Medical Decision Making - ED course ED course: 43-year-old female presents emergency department for chronic chest pain and concerns of word searching. Patient does report that her symptoms have now completely resolved since she has been back in the ER. Patient says that her chest pain feels like her chronic anxiety driven chest pain. EKG is complete for further evaluation which does not reveal any acute abnormal findings. No T wave inversions no ST elevation. Patient said that she would not like to have any further workup in the ER as she is feeling significantly better and would like to discharge now. She has close contact with her primary care provider and she was informed to contact her primary care provider to discuss possible lithium refill and agreed that she would pursue this. Patient is safe for discharge at this time all questions have been answered no further interventions are warranted. Departure - Departure Disposition: 01 Home, Self Care Clinical Impression: Anxiety Instructions: ED Stress React, ED Chest Pain Atypical Unkn Cause Comments: Thank you for trusting us With your care I am so happy to see that you are doing so much better. Follow-up with your primary care doctor to see follow-up with your primary care provider to see about next steps for possible psychiatry evaluation and lithium refill. Please come back to the ER for having any difficulty speaking, weakness on one side your body, chest pain that feels different from your normal chronic chest pain or any other concerning emergent symptoms. Forms: PCP List Discharge Date/Time: 02/01/24 19:49
[2024-02-01 19:54] VITALS: BP 136/85
== END 2024-02-01 19:49 | disposition home or self-care (01) ==
LOC: EDUNIT# → ED 18:27
DX: F41.9 Anxiety disorder, unspecified (principal); Z79.899 Other long term (current) drug therapy
CPT/HCPCS: 93005; 99283